=== PATIENT | female | born 1975 | race Caucasian/White ===

== ENCOUNTER 2018-06-28 12:34 | Outpatient (CLI) | payer OTHER | END 2018-06-28 23:59 | disposition home or self-care (01) | LOC: RAD 12:34 | PROVIDERS: ATTEND Student in an Organized Health Care Education/Training Program | DX: R29.818 Other symptoms and signs involving the nervous system (principal); R40.0 Somnolence; Z87.891 Personal history of nicotine dependence | CPT/HCPCS: 95816 ==

== ENCOUNTER 2019-12-19 09:16 | Day surgery (SDC) | payer OTHER, MEDICARE ==
[2019-12-12 12:33] LABS: BASOPHILS # (AUTO) 0.1 X10'3 (0-0.2); BASOPHILS % (AUTO) 0.7 % (0-1); EOSINOPHILS # (AUTO) 0.2 X10'3 (0-0.9); EOSINOPHILS % (AUTO) 2.6 % (0-6); LYMPHOCYTES # (AUTO) 1.5 X10'3 (1.1-4.8); LYMPHOCYTES % (AUTO) 19.9 % (21-51); MEAN CORPUSCULAR HEMOGLOBIN 30.7 PG (27.0-31.0); MEAN CORPUSCULAR HGB CONC 33.7 g/dL (33.0-36.5); MEAN CORPUSCULAR VOLUME 91.1 FL (78-98); MEAN PLATELET VOLUME 8.8 FL (7.4-10.4); MONOCYTES # (AUTO) 0.6 X10'3 (0-0.9); MONOCYTES % (AUTO) 8.6 % (2-12); NEUTROPHILS # (AUTO) 5.1 X10'3 (1.8-7.7); NEUTROPHILS % (AUTO) 68.2 % (42-75); PRE OP HEMATOCRIT 40.5 % (35.0-45.0); PRE OP HEMOGLOBIN 13.7 g/dL (12.0-16.0); PRE OP PLATELET COUNT 245 X10'3 (140-440); RED BLOOD COUNT 4.45 X10'6 (4.20-5.60); RED CELL DISTRIBUTION WIDTH 13.4 % (11.5-14.5)
[2019-12-12 12:44] LABS: ALBUMIN 3.8 G/DL (3.4-5.0); ALBUMIN/GLOBULIN RATIO 0.9 (1.1-1.5); ALKALINE PHOSPHATASE 76 IU/L (46-116); BLOOD UREA NITROGEN 21 MG/DL (7-18); BUN/CREATININE RATIO 26.6 (6.6-38.0); CALCIUM 9.1 MG/DL (8.5-10.1); CHLORIDE 104 MMOL/L (99-107); CREATININE 0.79 MG/DL (0.40-0.90); PRE OP ALT 22 U/L (30-65); PRE OP ANION GAP 7 (8-16); PRE OP AST 16 U/L (10-37); PRE OP BILIRUB, TOTAL 0.4 MG/DL (0.0-1.0); PRE OP GLUCOSE 89 MG/DL (70-104); PRE OP POTASSIUM 3.8 MMOL/L (3.4-5.1); PRE OP SODIUM 139 MMOL/L (135-145); TOTAL PROTEIN 7.9 G/DL (6.4-8.2); eGFR 79 ML/MIN
[2019-12-19] VITALS (8 sets, daily range): BP systolic 105–119; BP diastolic 60–71
[~2019-12-19] VITALS: Ht 167.6 cm; Wt 98.4 kg
[~2019-12-19 09:16] MED LIST: BUPIVAcaine/PF 2.5mg/ml (0.25%) 10ml vial ONE; DULO-31 PO; IRON1CAP39 PO; OMEP20TA5 PO; ceFAZolin 2gm in dextrose, iso 50 ML IV ONE; famotidine 20mg tablet PO ONE; ringers solution, lacted 1,000 ML IV SCH
[2019-12-19] MEDS ORDERED: BUPIVAcaine/PF 2.5 mg/ml (0.25%) 30ml vial ONE (10:53)
[2019-12-19] MEDS ORDERED: cloNIDine hcl/PF 100mcg/ml inj ONE (11:19)
[2019-12-19] MEDS ORDERED: fentaNYL/PF 50MCG/1 ML 2ML syringe ONE (11:20)
[2019-12-19] MEDS ORDERED: midazolam 2 mg/2 ml injection ONE (11:20)
[2019-12-19] MEDS ORDERED: propofol inj 20 ML IV ONE (11:20)
[2019-12-19] MEDS ORDERED: ROPIVAcaine 0.5% (5mg/ml) 30ml vial ONE (11:21)
[2019-12-19] MEDS ORDERED: ringers solution, lacted 1,000 ML IV SCH (11:27)
[2019-12-19] MEDS ORDERED: sevoflurane 250ml liquid IH ONE (11:28)
[2019-12-19] MEDS ORDERED: dexamethasone sod phosphate 10mg/ml inj ONE (11:28)
[2019-12-19] MEDS ORDERED: ondansetron/PF 4mg/2ml inj ONE (11:28)
[2019-12-19] MEDS ORDERED: morphine 2 MG/ML inj. syringe IV PRN (11:30)
[2019-12-19] MEDS ORDERED: proCHLORperazine 10 MG/2 ml inj IV PRN (11:30)
[2019-12-19] MEDS ORDERED: ondansetron/PF 4mg/2ml inj IV PRN (11:30)
[2019-12-19] MEDS ORDERED: morphine 4 MG/ML inj SYRINge IV PRN (11:30)
[2019-12-19] MEDS ORDERED: meperidine/PF 25mg/ml syringe IV PRN ×3 (11:30)
--- NOTE | 2019-12-19 13:18 | NUR ---
Received from OR via , accompanied by Anesthesiologist BRYANT and report given by Anesthesiolgist. AWAKE IN NO RESP DISTRESS SKIN WARM AND DRY HOB AND RUE ELEVATED. FINGERS WARM PINK GOOD CAP REFILL, NO CO PAIN. DSG DI ABLE TO MOVE FINGERS, ICE TO PHAN AND UPPER SIDE OF WRIST.
--- NOTE | 2019-12-19 14:28 | NUR ---
AWAKE VS WNL, DSG DI, NO CO PAIN. ICE TO BOTH SIDES OF WRIST. FINGERS WARM WITH MOVEMENT, GOOD CAP REFILL, TOLERATES LIQUIDS, VOIDED QS, DISCH INSTR GIVEN TO PT AND UNDERSTOOD, HAS PAIN MEDS AT HOME FOR WHEN THE BLOCK WEARS OFF. HOME WITH MOTHER
== END 2019-12-19 14:28 | disposition home or self-care (01) ==
LOC: PAS 09:16
PROVIDERS: ATTEND Orthopaedic Surgery Hand Surgery
DX: S63.591A Other specified sprain of right wrist, initial encounter (principal); S52.591P Other fractures of lower end of right radius, subsequent encounter for closed fracture with malunion; G56.01 Carpal tunnel syndrome, right upper limb; G47.30 Sleep apnea, unspecified; M19.90 Unspecified osteoarthritis, unspecified site; G62.9 Polyneuropathy, unspecified; E66.9 Obesity, unspecified; Z68.35 Body mass index [BMI] 35.0-35.9, adult; Z79.899 Other long term (current) drug therapy; Z11.59 Encounter for screening for other viral diseases; Z98.51 Tubal ligation status; Z98.890 Other specified postprocedural states; Z88.8 Allergy status to other drugs, medicaments and biological substances; Z91.030 Bee allergy status; Z90.710 Acquired absence of both cervix and uterus; Z87.891 Personal history of nicotine dependence; Z72.89 Other problems related to lifestyle; Z82.3 Family history of stroke; X58.XXXD Exposure to other specified factors, subsequent encounter; X58.XXXA Exposure to other specified factors, initial encounter; Y93.89 Activity, other specified; Y92.89 Other specified places as the place of occurrence of the external cause; Y99.8 Other external cause status
CPT/HCPCS: 25400; 29846; 36415; 64721; 76942; 80053; 82948; 85025; 93005; A6402; C1713; J0735; J1100; J2250; J2405; J2704; J3010; J3490; J7120; U0003; A4215; A4618; A6449; A7000; J2795